=== PATIENT | male | born 1995 | race Caucasian/White ===

== ENCOUNTER 2023-09-15 16:44 | Observation (INO) | payer BC ==
[2023-09-15 17:02] LABS: BASOPHILS ABSOLUTE AUTO 0.08 K/uL (0.00-0.20); BASOPHILS PERCENT AUTO 0.8 % (0.0-1.0); EOSINOPHILS PERCENT AUTO 1.9 % (0.0-6.0); HEMATOCRIT 44.7 % (42.0-52.0); HEMOGLOBIN 16.7 g/dL (14.0-18.0); IMMATURE GRAN ABSOLUTE AUTO 0.02 K/uL (0.00-0.05); IMMATURE GRAN PERCENT AUTO 0.2 % (0.0-0.4); LYMPHOCYTES ABSOLUTE AUTO 3.98 K/uL (1.00-4.80); LYMPHOCYTES PERCENT AUTO 37.7 % (24.0-44.0); MEAN CORPUSCULAR HEMOGLOBIN 32.2 pg (28.0-32.0); MEAN CORPUSCULAR HGB CONC 37.4 g/dL (32.0-36.0); MEAN CORPUSCULAR VOLUME 86.3 fL (83.0-99.0); MEAN PLATELET VOLUME 11.3 fL (9.4-12.4); MONOCYTES ABSOLUTE AUTO 0.56 K/uL (0.00-0.80); MONOCYTES PERCENT AUTO 5.3 % (0.0-8.0); NEUTROPHILS ABSOLUTE AUTO 5.71 K/uL (1.80-7.70); NEUTROPHILS PERCENT AUTO 54.1 % (41.0-71.0); PLATELET COUNT,PLT 300 K/uL (150-400); RED BLOOD CELL COUNT 5.18 M/uL (4.52-5.90); WHITE BLOOD CELL COUNT,WBC 10.55 K/uL (3.9-11.3)
[2023-09-15] MEDS ORDERED: Sodium Chloride 0.9% 1,000 ML IV ONE (17:15)
[2023-09-15 17:18] LABS: INR 1.02 (0.86-1.11); PTT,PARTIAL THROMBOPLSTIN TIME 30.3 SEC (23.9-30.7)
[2023-09-15] MEDS ORDERED: Iopamidol 755 MG/ML 500 ML Multipack Bottle IVPUSH STA (17:28)
[2023-09-15 17:52] LABS: A/G RATIO 1.4 (0.9-1.6); ALBUMIN 4.7 g/dL (3.4-5.0); BILIRUBIN TOTAL 0.3 mg/dL (0.2-1.0); CALCIUM 9.4 mg/dL (8.5-10.1); CARBON DIOXIDE,CO2 24.1 mmol/L (21.0-32.0); CREATININE 0.9 mg/dL (0.8-1.3); EST CRCL DRUG DOSING (CG) 139.54 mL/min; POTASSIUM,K 3.5 mmol/L (3.5-5.1); PROTEIN TOTAL,TP 8.1 g/dL (6.4-8.2)
[2023-09-15] MEDS ORDERED: atorvaSTATin 20 MG Tab PO ONE (19:16)
[2023-09-15] MEDS ORDERED: Aspirin 81 MG Tab.Chew PO ONE (19:16)
[2023-09-15 20:16] LABS: APPEARANCE,URINE CLEAR; COLOR,URINE YELLOW
[2023-09-15 20:17] LABS: BILIRUBIN,URINE NEGATIVE (NEGATIVE); GLUCOSE,URINE NEGATIVE (NEGATIVE); ICTOTEST,URINE NEGATIVE; KETONES,URINE NEGATIVE (NEGATIVE); LEUKOCYTE ESTERASE,URINE NEGATIVE (NEGATIVE); NITRITE,URINE NEGATIVE (NEGATIVE); OCCULT BLOOD,URINE NEGATIVE (NEGATIVE); PROTEIN,URINE NEGATIVE (NEGATIVE); UROBILINOGEN,URINE 0.2 EU/dL (<2.0)
[2023-09-15] MEDS ORDERED: Acetaminophen 325 MG Tab PO PRN (21:07)
[2023-09-15] MEDS ORDERED: Sodium Chloride 0.9% 10 ML Syringe FLUSH PRN (21:07)
[2023-09-15] MEDS ORDERED: Sodium Chloride 0.9% 2.5 ML Syringe FLUSH PRN (21:07)
[2023-09-15] MEDS ORDERED: Polyethylene Glycol 3350 Powder 17 GM Packet PO PRN (21:07)
[2023-09-15] MEDS ORDERED: Albuterol/Ipratropium 3.0-0.5 MG/3 ML Neb Soln NEB PRN (21:07)
[2023-09-15] MEDS ORDERED: Sodium Chloride 0.9% 20 ML SDV IV PRN (21:07)
[2023-09-15] MEDS ORDERED: Ondansetron 4 MG/2 ML SDV IVPUSH PRN (21:07)
[2023-09-15 21:10] LABS: AMPHETAMINES SCREEN, URINE NEGATIVE (CUTOFF=500); BARBITURATE SCREEN,URINE NEGATIVE (CUTOFF=200); BENZODIAZEPINES SCREEN,URINE NEGATIVE (CUTOFF=150); METHADONE SCREEN, URINE NEGATIVE (CUTOFF=200); METHAMPHETAMINES SCREEN, URINE NEGATIVE (CUTOFF=500); OXYCODONE SCREEN,URINE NEGATIVE (CUT0FF=100); PCP SCREEN,URINE NEGATIVE (CUTOFF=25)
[2023-09-15 21:11] LABS: BUPRENORPHINE SCREEN,URINE NEGATIVE (CUTOFF=10); THC SCREEN,URINE 20 NG/ML NEGATIVE (CUTOFF=50)
[2023-09-15] MEDS ORDERED: Sodium Chloride 0.9% 1,000 ML IV SCH (21:15)
[2023-09-15 22:11] LABS: HEMOGLOBIN A1C 5.3 %
[2023-09-15 23:01] LABS: TSH ULTRASENSITIVE 2.01 uIU/mL (0.36-3.74)
[2023-09-15 23:11] LABS: MAGNESIUM 2.1 mg/dL (1.8-2.4)
[2023-09-16] MEDS ORDERED: Aspirin 81 MG Tab.EC PO SCH (09:00)
[2023-09-16 12:48] VITALS: BP 134/86; PULSE 64
[2023-09-16] MEDS ORDERED: atorvaSTATin 20 MG Tab PO SCH (21:00)
== END 2023-09-16 12:39 | disposition home or self-care (01) ==
LOC: MW.ED 16:44 → MW.MS 20:53
PROVIDERS: ADMIT Family Medicine; ATTEND Family Medicine
DX: R47.81 Slurred speech (principal); H53.9 Unspecified visual disturbance; Z20.822 Contact with and (suspected) exposure to COVID-19; Z79.82 Long term (current) use of aspirin; Z79.899 Other long term (current) drug therapy
CPT/HCPCS: 36415; 70450; 70496; 70498; 70551; 71045; 80053; 80061; 80305; 81003; 82607; 83036; 83735; 84100; 84443; 84484; 85025; 85610; 85652; 85730; 86038; 86592; 87635; 93005; 93306; 96360; 99285; A9270; J7030; Q9967; 93010; 99222; 99239; 99284; U0002

== ENCOUNTER 2024-11-24 17:34 | Emergency (ER) | payer BC ==
[2024-11-24] MEDS: Sodium Chloride 0.9% 1,000 ML IV ONE (19:01)
[2024-11-24] MEDS: LORazepam 2 MG/ML SDV IVPUSH ONE (19:01)
[2024-11-24] MEDS: Ketorolac 30 MG/ML SDV IVPUSH ONE (19:31)
[2024-11-24 19:42] LABS: BASOPHILS ABSOLUTE AUTO 0.06 K/uL (0.00-0.20); BASOPHILS PERCENT AUTO 0.6 % (0.0-1.0); EOSINOPHILS PERCENT AUTO 2.2 % (0.0-6.0); HEMATOCRIT 46.7 % (42.0-52.0); HEMOGLOBIN 16.7 g/dL (14.0-18.0); IMMATURE GRAN ABSOLUTE AUTO 0.02 K/uL (0.00-0.05); IMMATURE GRAN PERCENT AUTO 0.2 % (0.0-0.4); LYMPHOCYTES ABSOLUTE AUTO 3.29 K/uL (1.00-4.80); LYMPHOCYTES PERCENT AUTO 35.6 % (24.0-44.0); MEAN CORPUSCULAR HEMOGLOBIN 31.7 pg (28.0-32.0); MEAN CORPUSCULAR HGB CONC 35.8 g/dL (32.0-36.0); MEAN CORPUSCULAR VOLUME 88.6 fL (83.0-99.0); MEAN PLATELET VOLUME 11.9 fL (9.4-12.4); MONOCYTES ABSOLUTE AUTO 0.52 K/uL (0.00-0.80); MONOCYTES PERCENT AUTO 5.6 % (0.0-8.0); NEUTROPHILS ABSOLUTE AUTO 5.15 K/uL (1.80-7.70); NEUTROPHILS PERCENT AUTO 55.8 % (41.0-71.0); PLATELET COUNT,PLT 217 K/uL (150-400); RED BLOOD CELL COUNT 5.27 M/uL (4.52-5.90); WHITE BLOOD CELL COUNT,WBC 9.24 K/uL (3.9-11.3)
[2024-11-24 19:56] LABS: A/G RATIO 1.5 (0.9-1.6); ALBUMIN 4.7 g/dL (3.4-5.0); BILIRUBIN TOTAL 0.4 mg/dL (0.2-1.0); CALCIUM 9.2 mg/dL (8.5-10.1); CARBON DIOXIDE,CO2 22.3 mmol/L (21.0-32.0); EST CRCL DRUG DOSING (CG) 120.96 mL/min; POTASSIUM,K 3.8 mmol/L (3.5-5.1); PROTEIN TOTAL,TP 7.9 g/dL (6.4-8.2)
[2024-11-24 20:04] VITALS: BP 130/74; PULSE 92
== END 2024-11-24 20:19 | disposition home or self-care (01) ==
LOC: MW.ED 17:34
DX: R51.9 Headache, unspecified (principal); I10 Essential (primary) hypertension; F17.210 Nicotine dependence, cigarettes, uncomplicated; Z79.82 Long term (current) use of aspirin; Z79.899 Other long term (current) drug therapy; Z75.8 Other problems related to medical facilities and other health care
CPT/HCPCS: 36415; 80053; 85025; 96361; 96374; 99284; J2060; J7030; 99283